=== PATIENT | male | born 1995 | race Caucasian/White ===

== ENCOUNTER 2020-10-07 19:11 | Emergency (ER) | payer BC ==
--- NOTE | 2020-10-07 19:57 | EDM.PDOC ---
ED HPI GENERAL MEDICAL PROBLEM - General Chief Complaint: Chest Pain Stated Complaint: CHEST PRESSURE SOB Time Seen by Provider: 10/07/20 19:20 Source of Information: Reports: Patient History Limitations: Reports: No Limitations - History of Present Illness INITIAL COMMENTS - FREE TEXT/NARRATIVE: Mr. Anthony is a very pleasant 25-year-old gentleman who now presents the ED stating that he has been experiencing intermittent retrosternal chest pressure, a discomfort, not a pain, with associated dyspnea and occasionally associated with nausea, for the past 2 to 3 weeks. He states that when his symptoms are present, they typically last about an hour, and may occur at any time, including when he is at rest. They typically occur only once every other day. He has not identified any modifiers. No associated diaphoresis or sense of impending doom. No similar symptoms prior to 2 to 3 weeks ago. The patient states that, on the advice of a chiropractor friend of his mother's, he began taking OTC KCl 2 days ago, otherwise, he has not taken any other [id number] or home remedies for his symptoms. Here in the ED tonight, the patient's initial BP is found to be modestly elevated at 154/99, otherwise, he is hemodynamically stable, afebrile, saturating 98% on room air. He appears to be comfortable, in no acute distress. He states that he is currently asymptomatic. Other than the chest pressure, dyspnea, and nausea, the patient denies having a recent fever, chills, sore throat, ear pain, nasal or sinus congestion, cough, palpitations, vomiting, constipation, diarrhea, abdominal pain, urinary symptoms, recent weight gain or weight loss, recent bloody bowel movements or black bowel movements, recent joint aches, headaches, or rashes. The patient does not have a PCP. He has not received a COVID vaccination. Middle Chest Pain Score (Numeric/FACES): 1 - Related Data Allergies Allergy/AdvReac Type Severity Reaction Status Date / Time No Known Allergies Allergy Verified 10/07/20 19:23 Home Meds: Home Meds Potassium Gluconate [Potassium] 99 mg PO DAILY 10/07/20 [History] Past Medical History Endocrine/Metabolic History: Reports: Obesity/BMI 30+ Social & Family History - Tobacco Use Tobacco Use Status *Q: Never Tobacco User - Caffeine Use Caffeine Use: Reports: Coffee - Alcohol Use Alcohol Use History: Yes Days Per Week of Alcohol Use: 7 Number of Drinks Per Day: 2 Total Drinks Per Week: 14 Alcohol Use Frequency: Daily (drinks to excess once a week) - Recreational Drug Use Recreational Drug Use: No - Living Situation & Occupation Living situation: Reports: Single, with Family (Parents) Occupation: Employed (Construction) ED ROS GENERAL - Review of Systems Review Of Systems: Comprehensive ROS is negative, except as noted in HPI. ED EXAM, GENERAL - Physical Exam Exam: See Below Exam Limited By: No Limitations General Appearance: Alert, WD/WN, No Apparent Distress Eye Exam: Bilateral Eye: EOMI, Normal Inspection Ears: Normal External Exam, Hearing Grossly Normal Nose: Normal Inspection Throat/Mouth: Normal Inspection, Normal Lips, Normal Voice, No Airway Compromise Head: Atraumatic, Normocephalic Neck: Normal Inspection, Full Range of Motion Respiratory/Chest: No Respiratory Distress, Lungs Clear, Normal Breath Sounds, No Accessory Muscle Use, Chest Non-Tender, Other (Discomfort is NOT induced by having the patient pressing his hands together with outstretched arms in front of him, or by crossing either of his arms across his chest) Cardiovascular: Normal Peripheral Pulses, Regular Rate, Rhythm, No Edema, No Gallop, No JVD, No Murmur, No Rub Peripheral Pulses: 3+: Radial (L), Radial (R) GI/Abdominal: Normal Bowel Sounds, Soft, Non-Tender (including in the RUQ and epigastrium), No Organomegaly, No Distention, No Abnormal Bruit, No Mass Back Exam: Normal Inspection, Full Range of Motion, NT Extremities: Normal Inspection, Normal Range of Motion, No Pedal Edema, Normal Capillary Refill Neurological: Alert, Oriented, Normal Cognition, No Motor/Sensory Deficits Psychiatric: Normal Affect Skin Exam: Warm, Dry, Intact, Normal Color, No Rash #1 Interpretation EKG Date: 10/07/20 Time: 19:23 Rhythm: NSR Rate (Beats/Min): 92 [place]: Normal P-Wave: Present QRS: Normal ST-T: Normal QT: Normal Comparison: NA - No Prior EKG Course - Vital Signs Last Recorded V/S: Last Vital Signs Temp 36.3 C 10/07/20 19:20 Pulse 93 10/07/20 19:20 Resp 16 10/07/20 19:20 BP 154/99 H 10/07/20 19:20 Pulse Ox 98 10/07/20 19:20 - Orders/Labs/Meds Orders: Active Orders 24 hr Category Date Time Status EKG 12 Lead [EKG Documentation Completion] [RC] ROUTINE Care 10/07/20 19:23 Active Labs: Laboratory Tests 10/07/20 10/07/20 10/07/20 Range/Units 20:07 20:07 20:07 WBC 7.37 (4.23-9.07) K/mm3 RBC 4.89 (4.63-6.08) M/mm3 Hgb 15.1 (13.7-17.5) gm/dl Hct 43.8 (40.1-51.0) % MCV 89.6 (79.0-92.2) fl MCH 30.9 (25.7-32.2) pg MCHC 34.5 (32.2-35.5) g/dl RDW Std Deviation 41.8 (35.1-43.9) fL Plt Count 189 (163-337) K/mm3 MPV 10.5 (9.4-12.3) fl Neutrophils % (Manual) 65 H (40-60) % Band Neutrophils % 0 (0-10) % Lymphocytes % (Manual) 22 (20-40) % Atypical Lymphs % 0 % Monocytes % (Manual) 11 H (2-10) % Eosinophils % (Manual) 2 (0.8-7.0) % Basophils % (Manual) 0 L (0.2-1.2) Platelet Estimate Adequate RBC Morph Comment Normal D-Dimer, Quantitative < 0.19 L (0.19-0.50) mg/L Sodium 145 (136-145) mEq/L Potassium 3.6 (3.5-5.1) mEq/L Chloride 106 (98-107) mEq/L Carbon Dioxide 30 (21-32) mEq/L Anion Gap 12.6 (5-15) BUN 22 H (7-18) mg/dL Creatinine 0.9 (0.7-1.3) mg/dL Est Cr Clr Drug Dosing 147.15 mL/min Estimated GFR (MDRD) > 60 (>60) mL/min BUN/Creatinine Ratio 24.4 H (14-18) Glucose 103 H (70-99) mg/dL Calcium 9.9 (8.5-10.1) mg/dL Magnesium 2.1 (1.8-2.4) mg/dL Total Bilirubin 0.5 (0.2-1.0) mg/dL AST 20 (15-37) U/L ALT 38 (16-63) U/L Alkaline Phosphatase 96 (46-116) U/L Troponin I < 0.017 (0.00-0.056) ng/mL NT-Pro-B Natriuret Pep (0-125) pg/mL Total Protein 8.1 (6.4-8.2) g/dl Albumin 4.7 (3.4-5.0) g/dl Globulin 3.4 gm/dL Albumin/Globulin Ratio 1.4 (1-2) 10/07/20 Range/Units 20:07 WBC (4.23-9.07) K/mm3 RBC (4.63-6.08) M/mm3 Hgb (13.7-17.5) gm/dl Hct (40.1-51.0) % MCV (79.0-92.2) fl MCH (25.7-32.2) pg MCHC (32.2-35.5) g/dl RDW Std Deviation (35.1-43.9) fL Plt Count (163-337) K/mm3 MPV (9.4-12.3) fl Neutrophils % (Manual) (40-60) % Band Neutrophils % (0-10) % Lymphocytes % (Manual) (20-40) % Atypical Lymphs % % Monocytes % (Manual) (2-10) % Eosinophils % (Manual) (0.8-7.0) % Basophils % (Manual) (0.2-1.2) Platelet Estimate RBC Morph Comment D-Dimer, Quantitative (0.19-0.50) mg/L Sodium (136-145) mEq/L Potassium (3.5-5.1) mEq/L Chloride (98-107) mEq/L Carbon Dioxide (21-32) mEq/L Anion Gap (5-15) BUN (7-18) mg/dL Creatinine (0.7-1.3) mg/dL Est Cr Clr Drug Dosing mL/min Estimated GFR (MDRD) (>60) mL/min BUN/Creatinine Ratio (14-18) Glucose (70-99) mg/dL Calcium (8.5-10.1) mg/dL Magnesium (1.8-2.4) mg/dL Total Bilirubin (0.2-1.0) mg/dL AST (15-37) U/L ALT (16-63) U/L Alkaline Phosphatase (46-116) U/L Troponin I (0.00-0.056) ng/mL NT-Pro-B Natriuret Pep 6 (0-125) pg/mL Total Protein (6.4-8.2) g/dl Albumin (3.4-5.0) g/dl Globulin gm/dL Albumin/Globulin Ratio (1-2) - Re-Assessments/Exams Free Text/Narrative Re-Assessment/Exam: 10/07/20 19:54 As above, the patient has been experiencing intermittent retrosternal chest pressure with associated dyspnea, typically lasting about 1 hour, and typically occurring about every other day, for the past 2 to 3 weeks. The symptoms can occur at any time, including when he is at rest. He has not identified any modifiers. He states that he has occasionally had nausea, but he is not reporting associated diaphoresis or sense of impending doom. He is not experiencing any symptoms at this time. An ECG, obtained at triage, is grossly normal, with no ischemic changes. On examination, his chest is nontender to palpation, and I am unable to induce pain in the chest by having him press his hands together with outstretched arms in front of him or by having him across either of his arms across his chest. The etiology of his symptoms is not immediately clear. I have ordered a work-up that includes numerous blood tests and a chest x-ray. 10/07/20 20:21 Two-view chest radiograph appears to be grossly normal. The cardiac silhouette is within normal limits. No pulmonary vascular congestion. No pleural effusions. No focal infiltrate. No pneumothorax. Formal read per the Radiologist pending. 10/07/20 21:11 The patient's CBC is unremarkable. His CMP is remarkable for a BUN slightly elevated at 22, but with a Cr normal at 0.9, and slight hyperglycemia of 103, with the remainder of his CMP being unremarkable. His magnesium level is within normal limits at 2.1. His troponin is undetectably low. His pro-BNP is within normal limits at 6. His D-dimer is undetectably low. 10/07/20 21:20 Test results discussed with the patient. As above, today's work-up is entirely unremarkable. Cardiac etiology is possible, but, I think, unlikely, given that he is only 25 years old, and has no identifiable risk factors for the development of coronary disease. Additionally, his symptoms can come and go even if he is at rest, which would not realistically be possible unless he had severe coronary disease, and if he had severe coronary disease, he would not be able to exert himself without the development of symptoms, which is not what he described. Statistically speaking, about 40% of chest discomforts are gastrointestinal in etiology, specifically, due to gastritis or GERD, which is what I suspect in this case. When I explained that to the patient, he mentioned that, in fact, he has been experiencing some heartburn. I recommended that he start taking OTC famotidine twice a day for a week, then decrease the dosage to 1 tablet in the morning. If his symptoms return after he decreases his dose, he should return to work twice a day regimen. If his symptoms persist despite taking famotidine twice a day, he will need to follow-up with a PCP to arrange for an EGD. Since there are some components of his presentation that are concerning for cardiac ischemia - a retrosternal discomfort, not a pain, that he indicated with an open hand across his sternum (Lane sign), with associated dyspnea and sometimes nausea - I recommended that he undergo an outpatient cardiac stress test, which can also be arranged for by his PCP. The patient is willing to do that. Departure - Departure Time of Disposition: 21:24 Disposition: Home, Self-Care 01 Condition: Good Clinical Impression: GERD (gastroesophageal reflux disease) - Discharge Information *PRESCRIPTION DRUG MONITORING PROGRAM REVIEWED*: Not Applicable *COPY OF PRESCRIPTION DRUG MONITORING REPORT IN PATIENT W[facility]: Not Applicable Referrals: PCP,None [Primary Care Provider] - Milly Ricardo NP [Nurse Practitioner] - Forms: ED Department Discharge Additional Instructions: You were seen in the emergency room after experiencing intermittent chest pain, shortness of breath, and occasional nausea, for the past 2 to 3 weeks. Work-up in the ER included several blood tests, a chest x-ray, and an ECG. Your entire work-up was unremarkable. You have not suffered a heart attack. You do not have a blood clot in your lungs. You do not have pneumonia or collapsed lung. Based on your history, physical exam, and ER tests, the cause of your symptoms is most likely due to GERD, also known as acid reflux. As discussed, we recommend that you start taking [id number] famotidine (Pepcid), 1 tablet twice a day. Famotidine is available [id number], and the generic is just as good as the name brand Pepcid. Continue to take 1 tablet of famotidine twice a day for 1 week, then decrease the dose to 1 tablet every morning. If your symptoms return after decreasing your dose, go back to taking 1 tablet twice a day. If, however, if you continue to have symptoms despite taking 1 tablet twice a day, please follow-up with your PCP to arrange for an EGD (scope of your esophagus and stomach). Please follow-up with Milly Ricardo NP, or one of the other providers in the clinic, to establish a PCP. Your PCP can arrange for you to undergo an outpatient cardiac stress test. If any other problems, please do not hesitate to return to the ER. Sepsis Event Note (ED) - Evaluation Sepsis Screening Result: No Definite Risk - Focused Exam Vital Signs: Vital Signs Temp Pulse Resp BP Pulse Ox 10/07/20 19:20 36.3 C 93 16 154/99 H 98 - My Orders Last 24 Hours: My Active Orders 10/07/20 19:23 EKG 12 Lead [EKG Documentation Completion] [RC] ROUTINE - Assessment/Plan Last 24 Hours: My Active Orders 10/07/20 19:23 EKG 12 Lead [EKG Documentation Completion] [RC] ROUTINE
--- NOTE | 2020-10-07 20:20 | CR ---
Chest: PA and lateral views of the chest were obtained. Comparison: No prior chest imaging is available. Heart size and mediastinum are normal. Lungs are clear with no acute parenchymal change. Minimal scoliosis is noted. No acute osseous finding is seen. Impression: 1. Nothing acute is seen on 2 view chest x-ray. Diagnostic code #2
== END 2020-10-07 21:32 | disposition home or self-care (01) ==
LOC: JD.ED 19:11
DX: K21.9 Gastro-esophageal reflux disease without esophagitis (principal); E66.9 Obesity, unspecified; Z68.30 Body mass index [BMI] 30.0-30.9, adult
CPT/HCPCS: 36415; 71046; 71046-26; 80053; 83735; 83880; 84484; 85007; 85027; 85379; 93005; 93010; 99283; 99285-25